=== PATIENT | male | born 1945 | race Caucasian/White ===

== ENCOUNTER 2022-04-05 12:12 | Emergency (ER) | payer OTHER, MEDICARE ==
[2022-04-05 12:30] VITALS: BP 132/74; PULSE 69
[2022-04-05] MEDS ORDERED: Lidocaine 1% 5 ML VIAL INJECT ONE (12:50)
[2022-04-05] MEDS ORDERED: Bacitracin Oint 1 GM U/D Packet TOP ONE (12:50)
== END 2022-04-05 14:09 | disposition home or self-care (01) ==
LOC: JP.ED 12:12
DX: S61.213A Laceration without foreign body of left middle finger without damage to nail, initial encounter (principal); I10 Essential (primary) hypertension; W26.8XXA Contact with other sharp object(s), not elsewhere classified, initial encounter
CPT/HCPCS: 12001; 99282-25